=== PATIENT | male | born 1935 | race Asian ===

== ENCOUNTER 2018-07-26 06:02 | Inpatient (IN) | payer OTHER ==
[~2018-07-26] VITALS: Ht 170.2 cm; Wt 78.9 kg
[2018-07-26] VITALS (7 sets, daily range): BP systolic 119–158; BP diastolic 74–93
[2018-07-26 07:04] LABS: BASOPHILS % (AUTO) 0.7 % (0.0-2.0); EOSINOPHILS # (AUTO) 0.2 K/uL (0-0.4); EOSINOPHILS % (AUTO) 4.4 % (0.0-4.0); HEMATOCRIT 46.3 % (36-52); HEMOGLOBIN 15.2 g/dL (12.0-18.0); LYMPHOCYTES # (AUTO) 1.4 K/uL (2.0-11.5); LYMPHOCYTES % (AUTO) 30.1 % (20.5-51.1); MEAN CORPUSCULAR HEMOGLOBIN 31 pg (27-31); MEAN CORPUSCULAR HGB CONC 33 g/dL (33-37); MEAN CORPUSCULAR VOLUME 94.8 fL (80-94); MONOCYTES # (AUTO) 0.5 K/uL (0.8-1.0); MONOCYTES % (AUTO) 10.6 % (1.7-9.3); NEUTROPHILS # (AUTO) 2.5 K/uL (1.8-7.7); NEUTROPHILS % (AUTO) 54.2 % (42.2-75.2); PLATELET COUNT (AUTO) 120 K/uL (140-450); RED BLOOD CELL COUNT(AUTO) 4.88 MIL/uL (4.20-6.10); RED CELL DISTRIBUTION WIDTH 13.1 % (11.6-13.7); WHITE BLOOD COUNT (AUTO) 4.6 K/uL (4.8-10.8)
[2018-07-26 07:10] LABS: ANION GAP 11.9 (8-16); CARBON DIOXIDE 28.3 mmol/L (21-32); CHLORIDE 106 mmol/L (98-107); CREATININE 1.2 mg/dL (0.7-1.3); GLUCOSE 131 mg/dL (74-106); POTASSIUM 4.2 mmol/L (3.5-5.1); SODIUM SERUM 142 mmol/L (136-145); UREA NITROGEN, BLOOD 16 mg/dL (7-18)
[2018-07-26 07:25] LABS: ALBUMIN 3.7 g/dL (3.4-5.0); ASPARTATE AMINOTRANSFERASE 22 U/L (15-37); TOTAL BILIRUBIN 0.8 mg/dL (0.0-1.0)
[2018-07-26 07:26] LABS: APPEARANCE,URINE CLEAR (CLEAR); BILIRUBIN,URINE NEGATIVE (NEGATIVE); BLOOD, URINE NEGATIVE (NEGATIVE); COLOR,URINE YELLOW (YELLOW); LEUKOCYTE ESTERASE ,URINE NEGATIVE (NEGATIVE); NITRITE, URINE NEGATIVE (NEGATIVE); UGLUCOSE NEGATIVE (NEGATIVE)
[2018-07-26] MEDS ORDERED: PIPERACILLIN/TAZOBACTAM 3.375 GM in DEXTROSE 5% 50 ML IV ONE (07:50)
[2018-07-26] MEDS ORDERED: NACL 0.9% 2,500 ML IV ONE (07:50)
[2018-07-26] MEDS ORDERED: PIPERACILLIN/TAZOBACTAM 3.375 GM VIAL IV ONE (08:04)
[2018-07-26] MEDS ORDERED: KETOROLAC 15 MG/ML VIAL IVP PRN (08:05)
[2018-07-26] MEDS ORDERED: ACETAMINOPHEN 325 MG TAB PO PRN (08:05)
[2018-07-26] MEDS ORDERED: DOCUSATE SODIUM 100 MG GELCAP PO PRN (08:05)
[2018-07-26] MEDS ORDERED: ONDANSETRON 4 MG/2 ML VIAL IM/IVP PRN (08:05)
[2018-07-26] MEDS ORDERED: MECLIZINE 25 MG TAB PO PRN (08:05)
[2018-07-26 08:42] LABS: PROTHROMBIN TIME 10.1 secs (10.8-13.4)
[2018-07-26 08:51] LABS: AMYLASE 77 U/L (25-115); CHOL/HDL RATIO 2.8 (1-4.5); HDL CHOLESTEROL 56 mg/dL (40-60); LDL (CALC) 77 mg/dL (60-100); LIPASE 174 U/L (73-393); MAGNESIUM 1.7 mg/dL (1.8-2.4); THYROID STIMULATING HORMONE 1.18 uIU/mL (0.34-3.74); TRIGLYCERIDES 107 mg/dL (30-150)
[2018-07-26 08:52] LABS: BARBITURATE, URINE NEG. ng/ml (NEG <=200); BENZODIAZEPINE, URINE NEG. ng/mL (NEG <=200); CANNABINOID, URINE NEG. ng/mL (NEG <=50); OPIATE, URINE NEG. ng/mL (NEG <=2000); PHENCYCLIDINE SCREEN,URINE NEG. ng/mL (NEG <=25)
[2018-07-26] MEDS ORDERED: TAMS0.4C96 PO (08:57)
[2018-07-26 09:00] LABS: COCAINE, URINE NEG. ng/mL (NEG <=300)
[2018-07-26] MEDS ORDERED: ATOR10TA PO (09:05)
[2018-07-26] MEDS ORDERED: OLME20TA11 PO (09:05)
[2018-07-26] MEDS ORDERED: OLMESARTAN MEDOXOMIL 20 MG PO SCH (09:10)
[2018-07-26] MEDS: NACL 0.9% 1,000 ML IV SCH (09:45)
[2018-07-26] MEDS ORDERED: LACTOBACILLUS RHAMNOSUS GG 1 EACH CAP PO SCH (10:00)
[2018-07-26] MEDS ORDERED: LOSARTAN 50 MG TAB PO SCH (10:00)
[2018-07-26] MEDS: PIPER/TAZO 2.25GM/D5W PREMIX 50 ML IV SCH ×2 (12:56→20:27)
[2018-07-26] MEDS: MAGNESIUM OXIDE 400 MG TAB PO SCH (20:29)
[2018-07-26] MEDS: ATORVASTATIN 20 MG TAB PO SCH (20:29)
[2018-07-26] MEDS: SODIUM PHOS / POTASSIUM PHOS 1 PKT PDR PO SCH (20:30)
[2018-07-26] MEDS: TAMSULOSIN 0.4 MG CAP PO SCH (20:30)
[2018-07-27] VITALS (7 sets, daily range): BP systolic 126–163; BP diastolic 73–90
[2018-07-27] MEDS: NACL 0.9% 1,000 ML IV SCH (00:55)
[2018-07-27] MEDS: PIPER/TAZO 2.25GM/D5W PREMIX 50 ML IV SCH ×3 (04:27→21:19)
[2018-07-27 06:32] LABS: BASOPHILS % (AUTO) 0.8 % (0.0-2.0); EOSINOPHILS # (AUTO) 0.2 K/uL (0-0.4); EOSINOPHILS % (AUTO) 3.8 % (0.0-4.0); HEMATOCRIT 46.2 % (36-52); HEMOGLOBIN 15.5 g/dL (12.0-18.0); LYMPHOCYTES # (AUTO) 1.2 K/uL (2.0-11.5); LYMPHOCYTES % (AUTO) 23.4 % (20.5-51.1); MEAN CORPUSCULAR HEMOGLOBIN 31 pg (27-31); MEAN CORPUSCULAR HGB CONC 34 g/dL (33-37); MEAN CORPUSCULAR VOLUME 93.4 fL (80-94); MONOCYTES # (AUTO) 0.5 K/uL (0.8-1.0); NEUTROPHILS # (AUTO) 3.1 K/uL (1.8-7.7); PLATELET COUNT (AUTO) 123 K/uL (140-450); RED BLOOD CELL COUNT(AUTO) 4.95 MIL/uL (4.20-6.10); RED CELL DISTRIBUTION WIDTH 13.2 % (11.6-13.7)
[2018-07-27] MEDS: DEXT 5% /NACL 0.9% 1,000 ML IV SCH ×3 (07:15→21:17)
[2018-07-27 07:18] LABS: ANION GAP 12.3 (8-16); CARBON DIOXIDE 29.3 mmol/L (21-32); CHLORIDE 107 mmol/L (98-107); CREATININE 1.2 mg/dL (0.7-1.3); GLUCOSE 110 mg/dL (74-106); POTASSIUM 4.6 mmol/L (3.5-5.1); SODIUM SERUM 144 mmol/L (136-145); UREA NITROGEN, BLOOD 17 mg/dL (7-18)
[2018-07-27] MEDS: SODIUM PHOS / POTASSIUM PHOS 1 PKT PDR PO SCH ×2 (08:54→21:20)
[2018-07-27] MEDS: MAGNESIUM OXIDE 400 MG TAB PO SCH ×2 (08:55→21:21)
[2018-07-27] MEDS: LACTOBACILLUS RHAMNOSUS GG 1 EACH CAP PO SCH (08:55)
[2018-07-27] MEDS: LOSARTAN 50 MG TAB PO SCH ×2 (08:55→11:56)
[2018-07-27 09:20] LABS: MAGNESIUM 1.8 mg/dL (1.8-2.4)
[2018-07-27] MEDS: TAMSULOSIN 0.4 MG CAP PO SCH (21:20)
[2018-07-27] MEDS: ATORVASTATIN 20 MG TAB PO SCH (21:20)
[2018-07-28] VITALS: BP 154/75
[2018-07-28 04:00] VITALS: BP 139/88
[2018-07-28] MEDS: PIPER/TAZO 2.25GM/D5W PREMIX 50 ML IV SCH (05:55)
[2018-07-28 07:22] LABS: BASOPHILS # (AUTO) 0.1 K/uL (0.00-0.22); EOSINOPHILS # (AUTO) 0.2 K/uL (0-0.4); EOSINOPHILS % (AUTO) 3.4 % (0.0-4.0); HEMATOCRIT 44.3 % (36-52); HEMOGLOBIN 14.6 g/dL (12.0-18.0); LYMPHOCYTES # (AUTO) 1.1 K/uL (2.0-11.5); LYMPHOCYTES % (AUTO) 15.9 % (20.5-51.1); MEAN CORPUSCULAR HEMOGLOBIN 31 pg (27-31); MEAN CORPUSCULAR HGB CONC 33 g/dL (33-37); MEAN CORPUSCULAR VOLUME 94.6 fL (80-94); MONOCYTES # (AUTO) 0.7 K/uL (0.8-1.0); MONOCYTES % (AUTO) 10.5 % (1.7-9.3); NEUTROPHILS # (AUTO) 4.7 K/uL (1.8-7.7); NEUTROPHILS % (AUTO) 69.2 % (42.2-75.2); PLATELET COUNT (AUTO) 123 K/uL (140-450); RED BLOOD CELL COUNT(AUTO) 4.68 MIL/uL (4.20-6.10); RED CELL DISTRIBUTION WIDTH 13.5 % (11.6-13.7); WHITE BLOOD COUNT (AUTO) 6.8 K/uL (4.8-10.8)
[2018-07-28 08:00] VITALS: BP 149/95
[2018-07-28 08:02] LABS: CARBON DIOXIDE 30.2 mmol/L (21-32); CHLORIDE 107 mmol/L (98-107); CREATININE 1.2 mg/dL (0.7-1.3); GLUCOSE 126 mg/dL (74-106); POTASSIUM 4.2 mmol/L (3.5-5.1); SODIUM SERUM 142 mmol/L (136-145); UREA NITROGEN, BLOOD 16 mg/dL (7-18)
[2018-07-28] MEDS: DEXT 5% /NACL 0.9% 1,000 ML IV SCH (08:15)
[2018-07-28] MEDS ORDERED: PHEN51GE TP (08:46)
[2018-07-28] MEDS ORDERED: MECL-272 PO (08:46)
[2018-07-28] MEDS: MAGNESIUM OXIDE 400 MG TAB PO SCH (09:22)
[2018-07-28] MEDS: SODIUM PHOS / POTASSIUM PHOS 1 PKT PDR PO SCH (09:23)
[2018-07-28] MEDS: LOSARTAN 50 MG TAB PO SCH (09:23)
[2018-07-28] MEDS: LACTOBACILLUS RHAMNOSUS GG 1 EACH CAP PO SCH (09:24)
[2018-07-28 12:00] VITALS: BP 155/81
[2018-07-28 12:56] VITALS: BP 155/81
== END 2018-07-28 13:35 | disposition home or self-care (01) | DRG 74 ==
LOC: MED 06:02 → MTU 08:26
PROVIDERS: ADMIT General Practice; ATTEND General Practice
DX: G90.9 Disorder of the autonomic nervous system, unspecified (principal); E87.2 Acidosis; H81.10 Benign paroxysmal vertigo, unspecified ear; D72.819 Decreased white blood cell count, unspecified; D69.6 Thrombocytopenia, unspecified; E83.39 Other disorders of phosphorus metabolism; E83.42 Hypomagnesemia; E78.00 Pure hypercholesterolemia, unspecified; N40.0 Benign prostatic hyperplasia without lower urinary tract symptoms; E78.5 Hyperlipidemia, unspecified; E86.0 Dehydration; M47.814 Spondylosis without myelopathy or radiculopathy, thoracic region; F03.90 Unspecified dementia, unspecified severity, without behavioral disturbance, psychotic disturbance, mood disturbance, and anxiety; I11.9 Hypertensive heart disease without heart failure; E23.7 Disorder of pituitary gland, unspecified
CPT/HCPCS: 36415; 70450; 71045; 80048; 80053; 80305; 81003; 82140; 82150; 83036; 83605; 83690; 83735; 83880; 84100; 84146; 84443; 84484; 85025; 85610; 85730; 87040; 87081; 87086; 93005; 93880; 96365; 97110; 97116; 97530; 99285; G0482; J2543; J7030; J7042; J7060; Q0092

== ENCOUNTER 2019-06-14 03:49 | Inpatient (IN) | payer OTHER ==
[~2019-06-14] VITALS: Ht 167.6 cm; Wt 81.9 kg
[~2019-06-14 03:49] MED LIST: ATOR10TA PO; MECL-272 PO; OLME20TA11 PO; PHEN51GE TP; TAMS0.4C96 PO
[2019-06-14 03:57] VITALS: BP 147/74
[2019-06-14] MEDS ORDERED: SODIUM CHLORIDE FLUSH 10 ML SYR IVF STA (04:05)
--- NOTE | 2019-06-14 04:06 | NUR ---
PT AMBULATED TO BED 11.
--- NOTE | 2019-06-14 04:13 | NUR ---
Dr. Cardenas examining patient.
[2019-06-14] MEDS ORDERED: NACL 0.9% 1,000 ML IV ONE (04:25)
[2019-06-14] MEDS ORDERED: NITROGLYCERIN 0.4 MG TAB SL ONE (04:25)
[2019-06-14] MEDS ORDERED: ASPIRIN 81 MG TAB.CHEW PO ONE (04:25)
--- NOTE | 2019-06-14 04:29 | NUR ---
PT C/O CHEST PAIN UPON INSPIRATION THAT RADIATES TO ABD X3 HRS. PT NOT IN DISTRESS AT THIS TIME. DENIES N/V/D. PT STATES PAIN IS 6/10 SHARP PAIN PROVOKED BY INSPIRATION. RR EVEN AND UNLABORED. ABD SOFT, ROUND, NONTENDER. VSS AT THIS TIME. FAMILY AT BEDSIDE. MEDHX: HDL ALLERGIES: NKA
[2019-06-14 04:39] LABS: HEMATOCRIT 45.2 % (36-52); HEMOGLOBIN 14.8 g/dL (12.0-18.0); MEAN CORPUSCULAR HEMOGLOBIN 31 pg (27-31); MEAN CORPUSCULAR HGB CONC 33 g/dL (33-37); MEAN CORPUSCULAR VOLUME 94.8 fL (80-94); PLATELET COUNT (AUTO) 132 K/uL (140-450); RED BLOOD CELL COUNT(AUTO) 4.77 MIL/uL (4.20-6.10); RED CELL DISTRIBUTION WIDTH 13.8 % (11.6-13.7); WHITE BLOOD COUNT (AUTO) 8.9 K/uL (4.8-10.8)
[2019-06-14 04:51] LABS: ANION GAP 11.6 (8-16); CARBON DIOXIDE 25.6 mmol/L (21-32); CHLORIDE 105 mmol/L (98-107); CREATININE 1.1 mg/dL (0.7-1.3); GLUCOSE 142 mg/dL (74-106); POTASSIUM 4.2 mmol/L (3.5-5.1); SODIUM SERUM 138 mmol/L (136-145); UREA NITROGEN, BLOOD 16 mg/dL (7-18)
[2019-06-14 04:56] LABS: ALBUMIN 3.6 g/dL (3.4-5.0); ASPARTATE AMINOTRANSFERASE 21 U/L (15-37); TOTAL BILIRUBIN 0.8 mg/dL (0.0-1.0)
[2019-06-14 04:59] LABS: PROTHROMBIN TIME 9.5 secs (10.8-13.4)
--- NOTE | 2019-06-14 05:01 | NUR ---
CALLED CT TO LET THEM KNOW PT IS READY TO GO TO CT SCAN.
[2019-06-14 05:06] LABS: EOSINOPHILS % (MANUAL) 1 % (0-4); LYMPHOCYTES % (MANUAL) 10 % (20-46); MONOCYTES % (MANUAL) 1 % (5-12)
--- NOTE | 2019-06-14 05:10 | NUR ---
PT TAKEN TO CT
--- NOTE | 2019-06-14 05:27 | NUR ---
PT RETURN FROM CT
[2019-06-14] MEDS ORDERED: HYDROcodone/APAP 7.5/325 MG 1 TAB PO PRN (06:30)
[2019-06-14] MEDS: NACL 0.9% 1,000 ML IV SCH ×2 (06:30→23:10)
[2019-06-14] MEDS ORDERED: ONDANSETRON 4 MG/2 ML VIAL IM/IVP PRN (06:30)
[2019-06-14] MEDS ORDERED: DOCUSATE SODIUM 100 MG GELCAP PO PRN (06:30)
--- NOTE | 2019-06-14 06:38 | NUR ---
PT RESTING IN BED WITH EYES CLOSED. NO FURTHER COMPLAINTS. VSS, WILL CONTINUE TO MONITOR.
--- NOTE | 2019-06-14 06:55 | NUR ---
RECEIVED PATIENT FROM ER NURSE. PATIENT IS ON ROOM AIR, A&OX4. IV TO RIGHT AC 20G. SKIN IS INTACT. PATIENT DENIES ANY CHEST PAIN AT THIS TIME. ADMINISTERED IVF NS @60ML/HR PER ORDER. WILL CONTINUE TO MONITOR
--- NOTE | 2019-06-14 07:03 | NUR ---
Patient will be admitted to care of DR WELDON. Admited to TELE. Will go to room 127B. Belongings list completed. Report to RONAL ISRAEL.
[2019-06-14 07:26] LABS: FREE T4 (FREE THYROXINE) 1.17 ng/dL (0.76-1.46); MAGNESIUM 1.7 mg/dL (1.8-2.4); PHOSPHORUS 2.1 mg/dL (2.5-4.9); THYROID STIMULATING HORMONE 1.4 uIU/mL (0.34-3.74)
--- NOTE | 2019-06-14 07:30 | NUR ---
ADMIT TELE STRIP SINUS RHYTHM, HR OF 93
[2019-06-14] MEDS ORDERED: ASPIRIN 81 MG TAB.CHEW PO SCH (09:00)
--- NOTE | 2019-06-14 09:15 | NUR ---
ADMINISTERED MORNING MEDICATION TO PATIENT. NO COMPLAINTS AT THIS TIME. PT DENIES PAIN
[2019-06-14] MEDS: LACTOBACILLUS RHAMNOSUS GG 1 EACH CAP PO SCH (09:40)
[2019-06-14] MEDS ORDERED: SODIUM PHOS / POTASSIUM PHOS 1 PKT PDR PO SCH (10:30)
[2019-06-14] MEDS ORDERED: MAG SULF 2000 MG/WATER PREMIX 50 ML IV SCH (11:00)
[2019-06-14 12:00] VITALS: BP 136/71
--- NOTE | 2019-06-14 12:15 | NUR ---
HUNG UP ZOSYN IVPB. PATIENT IS RESTING QUIETLY IN BED. NO COMPLAINTS AT THIS TIME.
[2019-06-14] MEDS: PIPERACILLIN/TAZOBACTAM 3.375 GM in DEXTROSE 5% 50 ML IV SCH ×2 (13:32→20:58)
[2019-06-14] MEDS: ACETAMINOPHEN 325 MG TAB PO PRN (13:36)
--- NOTE | 2019-06-14 13:37 | NUR ---
ADMINISTERED TYLENOL 650MG FOR A FEVER OF 101.0.
[2019-06-14 16:00] VITALS: BP 101/56
[2019-06-14 17:23] LABS: BILIRUBIN,URINE NEGATIVE (NEGATIVE); BLOOD, URINE NEGATIVE (NEGATIVE); LEUKOCYTE ESTERASE ,URINE NEGATIVE (NEGATIVE); NITRITE, URINE NEGATIVE (NEGATIVE); PH,URINE 7.5 (5.0-9.0); UGLUCOSE NEGATIVE (NEGATIVE)
[2019-06-14 17:25] LABS: APPEARANCE,URINE CLEAR (CLEAR); COLOR,URINE YELLOW (YELLOW)
--- NOTE | 2019-06-14 18:29 | NUR ---
PATIENT IS SITTING UP AT BEDSIDE. NO COMPLAINTS OR PAIN AT THIS TIME. WILL ENDORSE TO PROPERTY SPECIALIST NURSE FOR CONTINUITY OF CARE.
[2019-06-14 20:00] VITALS: BP 147/62
--- NOTE | 2019-06-14 20:00 | NUR ---
ASSUMED CARE. RECEIVED ALERT,ORIENTED,AMBULATORY. AFEBRILE, NOT IN ACUTE DISTRESS. DENIES ANY PAIN OR DISCOMFORT AT THIS TIME. IV LINE OCCLUDED. WILL ESTABLISH A NEW IV LINE. SAO2=95% ON ROOM AIR. SINUS RHYTHM AT 70'S ON THE MONITOR. VS STABLE, WILL CONTINUE TO MONITOR. NEEDS ATTENDED.
--- NOTE | 2019-06-14 20:30 | NUR ---
GAUGE 18 IV LINE ESTABLISHED TO THE RIGHT WRIST. IV FLUID NS RESTARTED AT 60 ML/HR.
[2019-06-14] MEDS: TAMSULOSIN 0.4 MG CAP PO SCH (20:58)
[2019-06-14] MEDS: ATORVASTATIN 20 MG TAB PO SCH (20:59)
--- NOTE | 2019-06-14 21:00 | NUR ---
DUE MEDICATIONS GIVEN.
[2019-06-14] MEDS ORDERED: LATA2.5S8 OP ×2 (22:22→22:34)
[2019-06-14] MEDS ORDERED: NORT10CA5 PO ×2 (22:22→22:34)
[2019-06-14] MEDS ORDERED: ASPI-1173 PO ×2 (22:22→22:34)
[2019-06-14] MEDS ORDERED: BRIN10SU OP ×2 (22:22→22:34)
[2019-06-15] VITALS: BP 135/70
--- NOTE | 2019-06-15 | NUR ---
NPO FOR HIDA SCAN STARTED.
--- NOTE | 2019-06-15 | NUR ---
ASLEEP, NOT IN ANY KIND OF DISTRESS. NO PAIN OR DISCOMFORT NOTED. SIDE RAILS UP,CALL LIGHT WITHIN REACH. KEPT WARM AND COMFORTABLE. WILL CONTINUE TO MONITOR. VS REMAIN STABLE.
[2019-06-15 04:00] VITALS: BP 155/70
--- NOTE | 2019-06-15 04:00 | NUR ---
ASLEEP, NO PAIN OR DISCOMFORT NOTED. NO SIGNIFICANT CHANGE IN CONDITION. VS REMAIN STABLE.
[2019-06-15] MEDS: PIPERACILLIN/TAZOBACTAM 3.375 GM in DEXTROSE 5% 50 ML IV SCH ×3 (05:00→20:40)
--- NOTE | 2019-06-15 06:00 | NUR ---
AWAKE, NO PAIN OR DISCOMFORT NOTED. NPO FOR HIDA SCAN ONGOING. SHIFT UNEVENTFUL.
[2019-06-15 06:43] LABS: BASOPHILS % (AUTO) 0.3 % (0.0-2.0); EOSINOPHILS # (AUTO) 0.1 K/uL (0-0.4); EOSINOPHILS % (AUTO) 0.8 % (0.0-4.0); HEMATOCRIT 45.1 % (36-52); HEMOGLOBIN 14.8 g/dL (12.0-18.0); LYMPHOCYTES # (AUTO) 1.2 K/uL (2.0-11.5); LYMPHOCYTES % (AUTO) 14.6 % (20.5-51.1); MEAN CORPUSCULAR HEMOGLOBIN 31 pg (27-31); MEAN CORPUSCULAR HGB CONC 33 g/dL (33-37); MEAN CORPUSCULAR VOLUME 95.3 fL (80-94); MONOCYTES # (AUTO) 1.2 K/uL (0.8-1.0); NEUTROPHILS # (AUTO) 5.9 K/uL (1.8-7.7); NEUTROPHILS % (AUTO) 70.3 % (42.2-75.2); PLATELET COUNT (AUTO) 117 K/uL (140-450); RED BLOOD CELL COUNT(AUTO) 4.74 MIL/uL (4.20-6.10); RED CELL DISTRIBUTION WIDTH 13.2 % (11.6-13.7); WHITE BLOOD COUNT (AUTO) 8.4 K/uL (4.8-10.8)
[2019-06-15 06:45] LABS: CARBON DIOXIDE 26.9 mmol/L (21-32); CHLORIDE 105 mmol/L (98-107); CREATININE 1.3 mg/dL (0.7-1.3); GLUCOSE 122 mg/dL (74-106); POTASSIUM 3.9 mmol/L (3.5-5.1); SODIUM SERUM 139 mmol/L (136-145); UREA NITROGEN, BLOOD 16 mg/dL (7-18)
[2019-06-15 06:49] LABS: MAGNESIUM 1.8 mg/dL (1.8-2.4); PHOSPHORUS 2.6 mg/dL (2.5-4.9)
--- NOTE | 2019-06-15 07:18 | NUR ---
ENDORSED CARE TO SANJUANA PEÑA.
[2019-06-15 08:00] VITALS: BP 148/86
[2019-06-15] MEDS: LACTOBACILLUS RHAMNOSUS GG 1 EACH CAP PO SCH (08:24)
[2019-06-15] MEDS ORDERED: LATANOPROST 0.005% OP 2.5 ML BTL OP SCH ×2 (09:00→21:00)
--- NOTE | 2019-06-15 11:02 | NUR ---
RECEIVED REPORT FROM NIGHT RN. PT RESTING IN BED. AAOX4. NO S/S OF ACUTE DISTRESS. PT DENIES PAIN. IV SITE PATENT AND INTACT. CALL LIGHT WITHIN REACH. SAFETY MEASURES ENSURED. WILL CONTINUE TO MONITOR.
[2019-06-15 11:56] VITALS: BP 153/85
--- NOTE | 2019-06-15 11:58 | NUR ---
PT RESTING IN BED. NO S/S OF ACUTE DISTRESS. PT DENIES PAIN. IV SITE PATENT AND INTACT. CALL LIGHT WITHIN REACH. SAFETY MEASURES ENSURED. WILL CONTINUE TO MONITOR.
[2019-06-15] MEDS: NACL 0.9% 1,000 ML IV SCH (14:48)
[2019-06-15 15:54] VITALS: BP 149/65
--- NOTE | 2019-06-15 15:54 | NUR ---
HIDA SCAN BEING PERFORMED NOW.
--- NOTE | 2019-06-15 19:30 | NUR ---
RECEIVED BEDSIDE REPORT FROM DAY RN. PT IS AAOX4 ON ROOM AIR. UNDERSTANDS SOME UPPER SORBIAN SPEAKS MOSTLY ENGLISH. SKIN IS INTACT. PT IS AMBULATORY ON STANDARD PRECAUTIONS. IV ON RAC 20G IVD NS @60M/H. PT HAD HIDA SCAN TODAY ORDERS FOR NPO AFTER MIDNIGHT. PT AWARE. SAFETY MEASURES ARE IN PLACE. CALL LIGHT IS WITHIN REACH. WILL CONTINUE TO MONITOR.
[2019-06-15 20:00] VITALS: BP 136/79
[2019-06-15] MEDS: ATORVASTATIN 20 MG TAB PO SCH (20:39)
[2019-06-15] MEDS: NORTRIPTYLINE 10 MG CAP PO SCH (20:39)
[2019-06-15] MEDS: TAMSULOSIN 0.4 MG CAP PO SCH (20:39)
--- NOTE | 2019-06-15 20:40 | NUR ---
VITAL SIGNS ARE WITHIN NORMAL LIMITS. ALHAJI MEDICATIONS GIVEN PATIENT TOLERATED WELL. ALL NEEDS MET AT THIS TIME. CALL LIGHT IS WITHIN REACH. WILL CONTINUE TO MONITOR.
[2019-06-15] MEDS: LATANOPROST 0.005% OP 2.5 ML BTL OP SCH (20:41)
--- NOTE | 2019-06-15 22:00 | NUR ---
PATIENT IS SLEEPING COMFORTABLY IN BED. CHEST RISE AND FALL. CALL LIGHT IS WITHIN REACH. WILL CONTINUE TO MONITOR.
--- NOTE | 2019-06-15 23:55 | NUR ---
VITAL SIGNS ARE WITHIN NORMAL LIMITS. ALL NEEDS MET AT THIS TIME. CALL LIGHT IS WITHIN REACH. WILL CONTINUE TO MONITOR.
[2019-06-16] VITALS: BP 143/78
--- NOTE | 2019-06-16 02:00 | NUR ---
PATIENT IS SLEEPING COMFORTABLY IN BED. CHEST RISE AND FALL. CALL LIGHT IS WITHIN REACH. WILL CONTINUE TO MONITOR.
[2019-06-16 04:00] VITALS: BP 144/75
[2019-06-16] MEDS: PIPERACILLIN/TAZOBACTAM 3.375 GM in DEXTROSE 5% 50 ML IV SCH ×3 (04:16→20:06)
--- NOTE | 2019-06-16 04:16 | NUR ---
VITAL SIGNS ARE WITHIN NORMAL LIMITS. ZOSYN NOW INFUSING PER ORDERS. ALL NEEDS MET AT THIS TIME. CALL LIGHT IS WITHIN REACH. WILL CONTINUE TO MONITOR.
[2019-06-16 07:02] LABS: EOSINOPHILS # (AUTO) 0.2 K/uL (0-0.4); HEMOGLOBIN 15.6 g/dL (12.0-18.0); LYMPHOCYTES # (AUTO) 1.3 K/uL (2.0-11.5); MEAN CORPUSCULAR HEMOGLOBIN 31 pg (27-31); PLATELET COUNT (AUTO) 128 K/uL (140-450); RED CELL DISTRIBUTION WIDTH 13.4 % (11.6-13.7)
[2019-06-16 07:09] LABS: BASOPHILS % (AUTO) 0.3 % (0.0-2.0); EOSINOPHILS % (AUTO) 2.4 % (0.0-4.0); HEMATOCRIT 47.8 % (36-52); LYMPHOCYTES % (AUTO) 17.9 % (20.5-51.1); MEAN CORPUSCULAR HGB CONC 33 g/dL (33-37); MEAN CORPUSCULAR VOLUME 95.5 fL (80-94); NEUTROPHILS % (AUTO) 66.4 % (42.2-75.2); WHITE BLOOD COUNT (AUTO) 7.5 K/uL (4.8-10.8)
--- NOTE | 2019-06-16 07:26 | NUR ---
GAVE BEDSIDE REPORT TO DAY RN. PT ENDORSED IN STABLE CONDITION.
--- NOTE | 2019-06-16 07:30 | NUR ---
RECEIVED BEDSIDE REPORT FROM USED CAR RENOVATOR NURSE, PT IS AWAKE AND ALERT, WALKING FROM THE BATHROOM TO HIS BED, STEADY GAIT. NO S/S OF DISTRESS, NO C/O PAIN OR SOB AT THIS TIME. PT IS ON ROOM AIR. IV SITE IS INFUSING NS 60 ML/HR VIA THE R HAND 22 G. SKIN IS INTACT. CALL LIGHT IS WITHIN REACH. PT IS NPO FOR POSSIBLE LAP ARABELLA.
[2019-06-16 07:55] LABS: ANION GAP 14.7 (8-16); CARBON DIOXIDE 26.3 mmol/L (21-32); CHLORIDE 104 mmol/L (98-107); CREATININE 1.2 mg/dL (0.7-1.3); GLUCOSE 106 mg/dL (74-106); SODIUM SERUM 141 mmol/L (136-145); UREA NITROGEN, BLOOD 14 mg/dL (7-18)
[2019-06-16 08:00] VITALS: BP 153/75
[2019-06-16] MEDS: NACL 0.9% 1,000 ML IV SCH ×2 (09:19→20:07)
[2019-06-16] MEDS: LACTOBACILLUS RHAMNOSUS GG 1 EACH CAP PO SCH (09:19)
--- NOTE | 2019-06-16 09:23 | NUR ---
AM MEDS ADMINISTERED, PT TOLERATED WELL
--- NOTE | 2019-06-16 11:37 | NUR ---
PT HAVING ECHOCARDIOGRAPHY AT THIS TIME
[2019-06-16 12:00] VITALS: BP 169/87
--- NOTE | 2019-06-16 13:10 | NUR ---
ZOSYN IV INFUSING ORDERED, PT IS RESTING COMFORTABLY IN BED, NO C/O PAIN OR SOB.
--- NOTE | 2019-06-16 15:34 | NUR ---
GOT A CALL FROM JACEY (HOUSE SUP), SHE SAYS DR STILL MIGHT DO CHOLECYSTECTOMY TONIGHT BUT NEEDS CARDIAC CLEARANCE FROM DR FITZPATRICK. DR FITZPATRICK IS ALREADY ON THE CASE, JUST WAITING FOR HIM TO COME SEE THE PATIENT. DR DUTTON IS AWARE.
[2019-06-16 16:00] VITALS: BP 181/101
--- NOTE | 2019-06-16 16:30 | NUR ---
PT SEEN BY DR FITZPATRICK
--- NOTE | 2019-06-16 17:15 | NUR ---
PT'S BP IS 181/[address] DUTTON IS INFORMED AND WILL PLACE MED ORDERS.
[2019-06-16] MEDS ORDERED: hydrALAZINE 20 MG/ML VIAL IVP PRN (17:35)
--- NOTE | 2019-06-16 18:46 | NUR ---
PT'S BP IS 174/91 AT THIS TIME.
--- NOTE | 2019-06-16 19:30 | NUR ---
PT ENDORSED TO ENVIRONMENTAL CONSULTANT NURSE IN STABLE CONDITION.
--- NOTE | 2019-06-16 19:31 | NUR ---
RECEIVED BEDSIDE REPORT FROM DAY RN. PT IS AAOX4 ON ROOM AIR. UNDERSTANDS SOME URUGUAYAN SPEAKS MOSTLY DANISH. SKIN IS INTACT. PT IS AMBULATORY ON STANDARD PRECAUTIONS. IV ON RAC 20G IVF NS @90M/H. PT HAD HIDA SCAN YESTERDAY AND WAS CLEARED TODAY BY MARKETING PROGRAM COORDINATOR FOR SURGERY. PT BEEN NPO TODAY NO ORDER FOR CONSENT WILL F/U. SAFETY MEASURES ARE IN PLACE. CALL LIGHT IS WITHIN REACH. WILL CONTINUE TO MONITOR.
[2019-06-16 20:00] VITALS: BP_SYST 136; BP_SYST 144; BP_DIAS 79; BP_DIAS 88
[2019-06-16] MEDS: NORTRIPTYLINE 10 MG CAP PO SCH (20:07)
[2019-06-16] MEDS: TAMSULOSIN 0.4 MG CAP PO SCH (20:07)
[2019-06-16] MEDS: LATANOPROST 0.005% OP 2.5 ML BTL OP SCH (20:07)
[2019-06-16] MEDS: ATORVASTATIN 20 MG TAB PO SCH (20:07)
--- NOTE | 2019-06-16 20:07 | NUR ---
VITAL SIGNS ARE WITHIN NORMAL LIMITS. HELD HEPARIN FOR POSSIBLE SURGERY. ALL OTHER ALHAJI MEDICATION GIVEN. PT TOLERATED WELL. CALL LIGHT IS WITHIN REACH. WILL CONTINUE TO MONITOR Addendum: 06/16/19 at 2211 by Mandy Armando RN PT'S B/P: 144/88 HR 75
--- NOTE | 2019-06-16 22:09 | NUR ---
PATIENT LAYING COMFORTABLY IN BED WITH EYES CLOSED. ALL NEEDS MET AT THIS TIME. CALL LIGHT IS WITHIN REACH. WILL CONTINUE TO MONITOR.
--- NOTE | 2019-06-16 23:00 | NUR ---
SURGEON DR STILL IN TO SEE PATIENT AND EXPLAINED SURGERY. PATIENT WAS UPSET WHY HES BEEN IN HOSPITAL THIS LONG. C/C CHEST PAIN. EXPLAINED HE HAD TO BE CLEARED BY SEEING EYE DOG TRAINER BEFORE HE CAN DO SURGERY. PT RECENTLY CLEARED LATE TODAY. PT AGREED TO SURGERY POSSIBLY TOMORROW AND CONSENT WAS SIGNED. BRANCH MECHANIC NAME AGUSTÍN ID#[id number]
[2019-06-17] VITALS (7 sets, daily range): BP systolic 135–170; BP diastolic 75–100
[2019-06-17] MEDS ORDERED: LISINOPRIL 10 MG TAB PO SCH
--- NOTE | 2019-06-17 00:08 | NUR ---
B/P HIGH 170/[address] ROJAS ORDER FOR LISINOPRIL ONCE. MEDICATION GIVEN PER ORDERS. WILL CONTINUE TO MONITOR.
--- NOTE | 2019-06-17 01:10 | NUR ---
RECHECKED B/P 135/78 HR 87. PT DENIES ANY PAIN. ALL NEEDS MET SAFETY MEASURES ARE IN PLACE. CALL LIGHT IS WITHIN REACH.WILL CONTINUE TO MONITOR.
--- NOTE | 2019-06-17 04:00 | NUR ---
VITAL SIGNS ARE WITHIN NORMAL LIMITS. ALL NEEDS MET AT THIS TIME. CALL LIGHT IS WITHIN REACH.
[2019-06-17] MEDS: PIPERACILLIN/TAZOBACTAM 3.375 GM in DEXTROSE 5% 50 ML IV SCH ×3 (04:18→20:29)
[2019-06-17] MEDS: NACL 0.9% 1,000 ML IV SCH ×2 (06:51→17:08)
--- NOTE | 2019-06-17 06:52 | NUR ---
PATIENT IS UP WASHING FACE AND TEETH DENIES ANY PAIN. NO DISTRESS NOTED. PT IS IN STABLE CONDITION. CALL LIGHT IS WITHIN REACH. WILL ENDORSE PT TO DAY RN.
--- NOTE | 2019-06-17 07:25 | NUR ---
RECEIVED REPORT FROM INSURANCE SERVICE REPRESENTATIVE NURSE. PATIENT IS AMBULATING IN IN ROOM. PATIENT IS A&O X4, ON ROOM AIR. IV TO RIGHT HAND 22G WITH NS INFUSING AT 90ML/HR. ON NPO STATUS CURRENTLY FOR POSSIBLE SX,. WILL CONTINUE WITH PLAN OF CARE.
[2019-06-17] MEDS: LACTOBACILLUS RHAMNOSUS GG 1 EACH CAP PO SCH (09:00)
--- NOTE | 2019-06-17 09:30 | NUR ---
ADMINISTERED MORNING CULTURELLE. WITHHELD MORNING HEPARIN D/T PT GOING TO SURGERY. NOTIFIED OF SURGERY AT [address] STILL, PATIENTS PRE OP CHECKLIST HAS BEEN COMPLETED AND CONSENT FORM SIGNED.
[2019-06-17] MEDS: BUPIVACAINE-MPF/EPI 0.5% 30 ML VIAL INJ ONE ×2 (10:05→12:21)
--- NOTE | 2019-06-17 10:21 | NUR ---
PATIENT IS OFF THE UNIT FOR LAP CHOLY.
[2019-06-17] MEDS ORDERED: HYDROmorphone PFS 2 MG/ML SYR ONE (10:33)
[2019-06-17] MEDS ORDERED: fentaNYL 0.05 MG/ML VIAL ONE (10:33)
[2019-06-17] MEDS ORDERED: DESFLURANE 240 ML BTL INH ONE (10:54)
[2019-06-17] MEDS ORDERED: KETOROLAC 30 MG/ML VIAL ONE (10:54)
[2019-06-17] MEDS ORDERED: GLYCOPYRROLATE 0.2 MG/ML VIAL ONE (10:54)
[2019-06-17] MEDS ORDERED: DEXAMETHASONE 4 MG/ML VIAL ONE (10:54)
[2019-06-17] MEDS ORDERED: ONDANSETRON 4 MG/2 ML VIAL ONE (10:54)
[2019-06-17] MEDS ORDERED: ROCURONIUM 50 MG/5 ML VIAL IV ONE (10:54)
[2019-06-17] MEDS ORDERED: NEOSTIGMINE 1:1000 10 MG/10 ML VIAL ONE (10:54)
[2019-06-17] MEDS ORDERED: PROPOFOL 200 MG/20 ML VIAL IV ONE (10:54)
[2019-06-17] MEDS ORDERED: ONDANSETRON 4 MG/2 ML VIAL IVP PRN (11:05)
[2019-06-17] MEDS ORDERED: HYDROmorphone 1 MG/ML AMP IVP PRN ×2 (11:05→12:15)
[2019-06-17] MEDS ORDERED: MORPHINE SULFATE 4 MG/ML SYR IV PRN (12:15)
[2019-06-17] MEDS ORDERED: HYDROcodone/APAP 5/325 MG 1 TAB TAB PO PRN (12:15)
[2019-06-17] MEDS ORDERED: MORPHINE SULFATE 2 MG/ML SYR IVP PRN (12:15)
[2019-06-17] MEDS ORDERED: ONDANSETRON 4 MG/2 ML VIAL IV PRN (12:15)
--- NOTE | 2019-06-17 13:10 | NUR ---
PATIENT IS BACK ON UNIT FROM OR. WILL MONITOR VITAL SIGNS Q4H PER POST OP SHEET.
--- NOTE | 2019-06-17 13:59 | NUR ---
ADMINISTERED ZOSYN IVPB
--- NOTE | 2019-06-17 14:15 | NUR ---
MONITORING VITAL SIGNS Q15MIN POST OP. VITAL SIGNS STABLE POST OP. WILL CONTINUE TO MONITOR
--- NOTE | 2019-06-17 18:17 | NUR ---
PATIENT IS RESTING QUIETLY IN BED. PATIENT WANTED TO REMAIN ON THE NASAL CANNULA. IS AT BEDSIDE. ALL NEEDS HAVE BEEN MET. WILL ENDORSE TO NIGHT RN
--- NOTE | 2019-06-17 19:35 | NUR ---
Received endorsement from AM shift RN; patient A/Ox4, able to make needs known, Scottish speaking, ambulatory. Patient is talking with son and ; introduced self, updated board. no SOB or distress noted, on O2 2LPM via nasal cannula. IV site noted on right hand, 22 gauge, running IVF at 90mL/hr. Skin non-intact; patient s/p lap cholecystectomy, 3 bandages noted with COSMO drain. Bed in the lowest position, call light within reach. Initial assessment done. Will continue to monitor. l
[2019-06-17] MEDS: LATANOPROST 0.005% OP 2.5 ML BTL OP SCH (20:31)
[2019-06-17] MEDS: TAMSULOSIN 0.4 MG CAP PO SCH (20:35)
[2019-06-17] MEDS: ACETAMINOPHEN 325 MG TAB PO PRN (20:36)
[2019-06-17] MEDS: NORTRIPTYLINE 10 MG CAP PO SCH (20:36)
[2019-06-17] MEDS: ATORVASTATIN 20 MG TAB PO SCH (20:37)
--- NOTE | 2019-06-17 20:58 | NUR ---
Vitals take, no distress noted.
--- NOTE | 2019-06-17 21:56 | NUR ---
Due meds given, tolerated well.
--- NOTE | 2019-06-17 23:55 | NUR ---
Vitals taken, no SOB or distress noted.
[2019-06-18] VITALS: BP 142/80
--- NOTE | 2019-06-18 02:13 | NUR ---
Checks made; patient noted with IV site leaking. IV discontinued and new IV site inserted on left hand, 24 gauge. Flushed and patent.
[2019-06-18 04:00] VITALS: BP 137/74
[2019-06-18] MEDS: guaiFENesin 20 MG/ML UDC PO PRN ×2 (04:05→11:10)
[2019-06-18] MEDS: PIPERACILLIN/TAZOBACTAM 3.375 GM in DEXTROSE 5% 50 ML IV SCH ×3 (04:05→21:46)
[2019-06-18] MEDS: NACL 0.9% 1,000 ML IV SCH ×2 (04:08→16:12)
--- NOTE | 2019-06-18 04:30 | NUR ---
Vitals take, no SOB or distress noted.
--- NOTE | 2019-06-18 06:25 | NUR ---
Vitals stable, due meds given. Will endorse to AM shift RN for continuity of care.
[2019-06-18 07:07] LABS: ALBUMIN 2.9 g/dL (3.4-5.0); ANION GAP 13.5 (8-16); ASPARTATE AMINOTRANSFERASE 55 U/L (15-37); CARBON DIOXIDE 24.7 mmol/L (21-32); CHLORIDE 107 mmol/L (98-107); CREATININE 1.2 mg/dL (0.7-1.3); GLUCOSE 116 mg/dL (74-106); POTASSIUM 4.2 mmol/L (3.5-5.1); SODIUM SERUM 141 mmol/L (136-145); TOTAL BILIRUBIN 0.8 mg/dL (0.0-1.0); UREA NITROGEN, BLOOD 13 mg/dL (7-18)
--- NOTE | 2019-06-18 07:26 | NUR ---
RECEIVED REPORT FROM RELIEF MAP MODELER RN. PATIENT IS AWAKE AND IN BED. NEW IV TO LEFT HAND 24G. PATIENT IS ON NASAL CANNULA 2L. WILL CONTINUE WITH PLAN OF CARE FOR THE DAY.
[2019-06-18 07:33] LABS: BASOPHILS % (AUTO) 0.2 % (0.0-2.0); EOSINOPHILS % (AUTO) 0.1 % (0.0-4.0); HEMATOCRIT 41.6 % (36-52); HEMOGLOBIN 13.6 g/dL (12.0-18.0); LYMPHOCYTES # (AUTO) 0.6 K/uL (2.0-11.5); LYMPHOCYTES % (AUTO) 7.3 % (20.5-51.1); MEAN CORPUSCULAR HEMOGLOBIN 31 pg (27-31); MEAN CORPUSCULAR HGB CONC 33 g/dL (33-37); MEAN CORPUSCULAR VOLUME 94.5 fL (80-94); MONOCYTES # (AUTO) 0.7 K/uL (0.8-1.0); MONOCYTES % (AUTO) 7.7 % (1.7-9.3); NEUTROPHILS # (AUTO) 7.5 K/uL (1.8-7.7); NEUTROPHILS % (AUTO) 84.7 % (42.2-75.2); PLATELET COUNT (AUTO) 153 K/uL (140-450); WHITE BLOOD COUNT (AUTO) 8.9 K/uL (4.8-10.8)
[2019-06-18 08:00] VITALS: BP 162/80
--- NOTE | 2019-06-18 08:00 | NUR ---
PT TOOK MORNING CULTURELLE AND REFUSED HEPARIN INJECTION. PT COMPLAINED OF PAIN WHEN COUGHING. INFORMED PATIENT THAT NEXT DOSE OF ROBITUSSIN CANT BE GIVEN FOR ANOTHER HOUR. INFORMED PATIENT THAT AMBULATING IS BENEFICIAL AND OFFERED TO AMBULATE WITH HIM, PATIENT DENIED.
--- NOTE | 2019-06-18 08:00 | NUR ---
LATE ENTRY PT UNABLE TO DO SAYS TO MUCH PAIN
--- NOTE | 2019-06-18 08:01 | NUR ---
PY COMPLAIN OF PAIN UNABLE TO TAKE DEEP BREATH
[2019-06-18] MEDS: LACTOBACILLUS RHAMNOSUS GG 1 EACH CAP PO SCH (08:15)
[2019-06-18] MEDS ORDERED: BENZONATATE 100 MG CAPLF PO PRN (08:15)
[2019-06-18] MEDS ORDERED: BENZONATATE 100 MG CAPLF PO SCH (08:25)
--- NOTE | 2019-06-18 10:00 | NUR ---
ADMINISTERED TESSALON ONE TIME DOSE FOR COUGH.
--- NOTE | 2019-06-18 11:12 | NUR ---
ADMINISTERED ROBITUSSIN PRN FOR COUGHING.
--- NOTE | 2019-06-18 11:23 | NUR ---
MET WITH THE PATIENT AT THE BEDSIDE WITH MEDICAL STUDENT VAL CAO. INFORMED HIM THAT THE DC PLAN FOR HIM IS TO SNF FOR ANTIBIOTIC AND PT. HE IS AGREEABLE TO SNF PLACEMENT BUT REQUESTING IF WE CAN FIND ONE IN [place] (CLOSE TO HOME). INFORMED HIM THAT I CAN FIND ONE BUT COULD NOT GUARANTEE HIM OF BED AVAILABILITY. INFORMED HIM THAT THERE ARE TWO FACILITIES THAT I FOUND, [facility] AND [facility]. HE STATED HE IS OK WITH IT. CONTACTED [facility] AT [phone], ABLE TO SPEAK TO JENNIFER (INTAKE). SHE STATED THAT THEY ARE FULL TODAY BUT TO GO AHEAD AND FAX REFERRAL TO [phone]. CONTACTED [facility] AT [phone], ABLE TO SPEAK TO BRENDAN. SHE PROVIDED ME WITH INTAKE DIRECT LINE AT [phone]. CONTACTED THE PROVIDED NUMBER, ABLE TO SPEAK TO SYL. SHE CONFIRMED THAT THEY HAVE A SNF UNIT AND PROVIDED ME WITH FAX NUMBER [phone] TO SEND REFERRAL. REFERRAL SENT TO BOTH FACILITIES. Addendum: 06/18/19 at 1210 by Jaimie Groves CM PER OLAYINKA OF [facility], THEY RECEIVED THE REFERRAL AND WILL REVIEW THE CASE. SHE ALSO STATED THAT THEY DO NOT HAVE A MALE BED AVAILABLE THIS TIME. Addendum: 06/18/19 at 1213 by Jaimie Groves CM RECEIVED A CALL FROM [facility], NO MALE BEDS AT THIS TIME. Addendum: 06/18/19 at 1215 by Jaimie Groves CM CONTACTED ZACHARY LEVY KIM (INTAKE) IS OUT FOR THE MEETING AND WILL BE BACK IN TWO HOURS. Addendum: 06/18/19 at 1355 by Jaimie Groves CM MET WITH THE PATIENT AGAIN AT THE BEDSIDE TO INFORM HIM THAT THERE ARE NO BEDS AVAILABLE AT THIS TIME ON BOTH FACILITIES FROM [place]. I TOLD HIM THAT I WILL START FAXING OVER CLINICALS TO SOME OTHER FACILITIES. HE VERBALIZED UNDERSTANDING TRANSLATED BY MEDICAL STUDENT VAL. CLINICAL FAXED TO [facility]. Addendum: 06/18/19 at 1356 by Jaimie Groves CM RECEIVED A CALL FROM BROOK PLUMMER) OF [facility], SHE STATED SHE WILL MAKE SOME ROOM CHANGES AND WILL CALL US BACK IN 5 MINS TO CONFIRM IF BED IS AVAILABLE. Addendum: 06/18/19 at 1420 by Jaimie Groves CM MET WITH THE PATIENT AGAIN TRANSLATED BY MEDICAL STUDENT VAL, INFORMED HIM THAT [facility] ACCEPTED HIM. ABLE TO VERBALIZE UNDERSTANDING.
[2019-06-18 12:00] VITALS: BP 140/76
--- NOTE | 2019-06-18 13:32 | NUR ---
CONTACTED PAT LEUNG AT [phone], ABLE TO SPEAK TO TREY REGARDING SNF PLACEMENT ORDER. SHE STATED THERE IS NO CONSTRUCTION TECHNOLOGY INSTRUCTOR ASSIGNED TO THIS PATIENT, FOR SNF PLACEMENT IT HAS TO GO TO MEDICARE AND FOR TRANSPORT MAY USE [facility] AT [phone]. Addendum: 06/18/19 at 1456 by Bobby Cartagena SS IMELDA was contacted by Tara from [facility] [phone]. Tara stated that patient is able to be accepted in Room 1B with accepting physician Dr. Wei Roa. Contacted Syeda [phone] to verify [facility]. Spoke with Gabrielle. Gabrielle stated that [facility] phone number is: [phone]. Contacted [facility] and set up transportation to [address] [address]. Confirmation #[id number]. Spoke with Roselyn who made pickup time "as soon as possible" and is based on availability. IMELDA informed charge nurse.
--- NOTE | 2019-06-18 14:00 | NUR ---
PATIENT HAS DISCHARGE ORDERS FOR SNF FOR PT. WILL FOLLOW UP AND WORK ON PAPERWORK.
[2019-06-18] MEDS ORDERED: CIPR500T4 PO (14:28)
[2019-06-18] MEDS ORDERED: IBUP-2213 PO (14:28)
[2019-06-18] MEDS ORDERED: BENZ100C6 PO (14:28)
--- NOTE | 2019-06-18 14:41 | NUR ---
REMOVED PATIENTS IV LINE, CATHETER INTACT.
--- NOTE | 2019-06-18 15:45 | NUR ---
REMOVED PATIENTS COSMO SUTURES AND COSMO DRAIN, LINE INTACT. MINIMAL BLEEDING, HELD SIGHT FOR 5 MIN AND DRESSED SITE WITH A 4X4. PATIENT TOLERATED WELL.
[2019-06-18 16:00] VITALS: BP 143/82
--- NOTE | 2019-06-18 18:00 | NUR ---
CONTACTED [facility] WITH NO RESPONSE. PRINTED DISCHARGE PAPERWORK. WILL ENDORSE TO VOCATIONAL TECHNICAL EDUCATION TEACHER TO CONTINUE CARE.
[2019-06-18 20:00] VITALS: BP 159/81
--- NOTE | 2019-06-18 20:00 | NUR ---
ASSUMED CARE. RECEIVED ALERT,ORIENTED. AFEBRILE,NOT IN ACUTE DISTRESS. DENIES ANY PAIN OR DISCOMFORT. NO IV LINE AT THIS TIME. PT.IS SUPPOSEDLY FOR DISCHARGE BUT HAD PROBLEM WITH TRANSPORTATION. XZX2=590% ON ROOM AIR. VS ARE OTHERWISE STABLE. WILL CONTINUE TO MONITOR. NEEDS ATTENDED.
[2019-06-18] MEDS: NORTRIPTYLINE 10 MG CAP PO SCH (21:45)
[2019-06-18] MEDS: TAMSULOSIN 0.4 MG CAP PO SCH (21:45)
[2019-06-18] MEDS: ATORVASTATIN 20 MG TAB PO SCH (21:46)
--- NOTE | 2019-06-18 21:46 | NUR ---
GAUGE 20 IV LINE ESTABLISHED TO THE LEFT WRIST. DUE MEDICATIONS GIVEN.
[2019-06-18] MEDS: LATANOPROST 0.005% OP 2.5 ML BTL OP SCH (21:47)
[2019-06-19] VITALS: BP 143/79
--- NOTE | 2019-06-19 | NUR ---
ASLEEP, NOT IN ANY KIND OF DISTRESS. NO PAIN OR DISCOMFORT NOTED. SIDE RAILS UP,CALL LIGHT WITHIN REACH. KEPT WARM AND COMFORTABLE. VS REMAIN STABLE.
[2019-06-19] MEDS: NACL 0.9% 1,000 ML IV SCH (00:35)
[2019-06-19 04:00] VITALS: BP 148/90
--- NOTE | 2019-06-19 04:00 | NUR ---
ASLEEP, NO SIGNIFICANT CHANGE IN CONDITION. PT.REMAINS STABLE AND PAIN FREE.
[2019-06-19] MEDS: PIPERACILLIN/TAZOBACTAM 3.375 GM in DEXTROSE 5% 50 ML IV SCH ×2 (05:14→12:51)
--- NOTE | 2019-06-19 07:15 | NUR ---
ENDORSED CARE TO DENI PEÑA.
--- NOTE | 2019-06-19 07:20 | NUR ---
RECEIVED PT FROM GRAIN MIXER NURSEJOHANNA, PT IS AWAKE AND JUST CAME OUT FROM THE BATHROOM, AMBULATING TO THE BED, IV LINE ON THE LEFT WRIST G. 20 WITH NS INFUSING AT 90ML/HR, PT DENIES PAIN AND WAS TOLD OF THE SAFETY PRECAUTION. PT DENIES PAIN AND NO SIGN OF DISTRESS NOTED. WILL MONITOR PT.
[2019-06-19 08:00] VITALS: BP 155/75
--- NOTE | 2019-06-19 09:23 | NUR ---
CALLED [facility] [phone] SPOKE WITH EMILY EXPLAINED PT WAS SUPPOSE TO GO TO SNF YESTERDAY AND NO TRANSPORT SHOW UP, PER EMILY THE PROBLEM WAS NEVER ASSIGNED TO A PATIENT SERVICE TECHNICIAN PST. A NEW SCHEDULE IS MADE AND THE PATIENT SERVICE TECHNICIAN PST WILL CALL BACK WITH IN 20 TO 30 MINUTES ,PROVIDED THE UNIT NUMBER. CALLED [employer] [place] [phone] SPOKE WITH CLEVE NOTIFIED THE PROBLEM WITH THE TRANSPORTATION ,PER CLEVE ROOM 1B IS STILL AVAILABLE. CM TO FOLLOW
[2019-06-19] MEDS: LACTOBACILLUS RHAMNOSUS GG 1 EACH CAP PO SCH (09:51)
--- NOTE | 2019-06-19 09:51 | NUR ---
PT IS AWAKE AND LYING ON THE BED AND ORAL MEDICATION WAS GIVEN AND TOLERATED IT. WILL MONITOR PT.
[2019-06-19 10:04] LABS: ANION GAP 13.3 (8-16); CARBON DIOXIDE 25.3 mmol/L (21-32); CHLORIDE 107 mmol/L (98-107); CREATININE 1.2 mg/dL (0.7-1.3); GLUCOSE 135 mg/dL (74-106); POTASSIUM 3.6 mmol/L (3.5-5.1); SODIUM SERUM 142 mmol/L (136-145); UREA NITROGEN, BLOOD 10 mg/dL (7-18)
[2019-06-19 10:56] LABS: HEMATOCRIT 41.6 % (36-52); HEMOGLOBIN 13.7 g/dL (12.0-18.0); MEAN CORPUSCULAR HEMOGLOBIN 31 pg (27-31); MEAN CORPUSCULAR HGB CONC 33 g/dL (33-37); MEAN CORPUSCULAR VOLUME 94.8 fL (80-94); PLATELET COUNT (AUTO) 150 K/uL (140-450); RED BLOOD CELL COUNT(AUTO) 4.39 MIL/uL (4.20-6.10); RED CELL DISTRIBUTION WIDTH 13.6 % (11.6-13.7); WHITE BLOOD COUNT (AUTO) 6.2 K/uL (4.8-10.8)
--- NOTE | 2019-06-19 11:42 | NUR ---
CALLED JESUS MORRISON AT [phone] AND GAVE REPORT TO FRANKIE VILLEDA REGARDING THE PT'S DISCHARGED INSTRUCTIONS AND RN WAS TOLD THAT PT WILL CONTINUE ALL HIS HOME MEDICATIONS, WELL THE TESSALON PERLES PRN FOR COUGH AND IBUPROFEN PRN FOR PAIN AND ALSO CIPRO 500MG TWICE DAILY FOR 3 ADDITIONAL DAYS MORE AND FRANKIE VILLEDA VERBALIZED UNDERSTANDING. PT WILL BE PLACE IN 1-B UNDER THE SERVICE OF DR. YOHANNES QUINTERO, RONAL DAVID ACKNOWLEDGED THE REPORT AND VERBALIZED UNDERSTANDING, TRANSPORT JUSTINE'S MARBLE WORKER TIME IS NOT KNOWN YET AT THIS TIME.
[2019-06-19 12:00] VITALS: BP 185/101
[2019-06-19 12:22] LABS: EOSINOPHILS % (MANUAL) 1 % (0-4); LYMPHOCYTES % (MANUAL) 10 % (20-46); MONOCYTES % (MANUAL) 9 % (5-12)
--- NOTE | 2019-06-19 12:51 | NUR ---
PT IS AWAKE AND EATING HIS LUNCH, IVPB MEDICATION WAS GIVEN AND TOLERATED IT. WILL MONITOR PT.
--- NOTE | 2019-06-19 12:51 | NUR ---
CALLED [facility] SPOKE WITH LAURA, STATED IT WAS A MISTAKE THEY ACCEPTED THE CALL, SINCE IT IS OUT OF THE AREA THEY NEED CONFIRMATION FROM THE INSURANCE. CALLED INSURANCE AT [phone] SPOKE WITH WILLIAM STATED SHE CAN NOT GIVE AUTHORIZATION , CLOSED FOR WEAKENED.
[2019-06-19] MEDS ORDERED: METOPROLOL 5 MG/5 ML VIAL IVP SCH (13:02)
--- NOTE | 2019-06-19 13:35 | NUR ---
UNABLE TO REACH FAMILY , ARRANGED TRANSPORT WITH [facility] FOR LERNER OF 220$ DISCUSSED WITH PRESIDENTIAL HELICOPTER CREW CHIEF DIA HANNA . BAGGER AND STOCK HANDLER HELPER TIME 3:30 PM NOTIFIED RADHA VILLEDA
[2019-06-19 13:59] VITALS: BP 185/100
--- NOTE | 2019-06-19 14:44 | NUR ---
RECEIVED A CALL FROM [facility] SPOKE WITH NORA [phone] PER NORA HE ARRANGED TRANSPORT WITH [facility] WITH IN 20-30 MINUTES . CANCELLED [facility].
--- NOTE | 2019-06-19 15:25 | NUR ---
DISCHARGED PT WITH UBER RUBY ON RAILS ENGINEER THAT WAS CALLED BY INSURANCE TO [facility] KAY MACHINE OPERATOR THE PT, IV LINE AND ARM BAND REMOVED, DISCHARGED TEACHINGS ON INCISION MANAGEMENT GIVEN TO PT AND VERBALIZED UNDERSTANDING. MEDICATION PRESCRIPTION WAS GIVEN TO PT AND GIVEN INSTRUCTIONS WELL AND VERBALIZED UNDERSTANDING. PT IS STABLE AT THIS TIME WITH BP OF 158/79, PULSE OF 80, DENIES PAIN.
--- NOTE | 2019-06-19 16:10 | NUR ---
FAXED ALL THE DISCHARGE PAPER WORK OF THE PT,THAT THE DIPLOMA MEDICAL ASSISTANT FORGOT TO BRING, TO [phone] AND CALLED [facility] AT [phone] AND SPOKE TO [facility] AND WAS INFORMED THAT PT'S DOCUMENTS WILL BE FAXED AND IRAIDA VERBALIZED UNDERSTANDING.AWAITING CONFIRMATION NOTE.
--- NOTE | 2019-06-19 16:29 | NUR ---
RECEIVED CONFIRMATION NOW FROM THE FAXED DISCHARGED PAPER WORK SENT TO [facility].
== END 2019-06-19 15:25 | DRG 418 ==
LOC: MED 03:49 → MMU 06:33
PROVIDERS: ADMIT Family Medicine; ATTEND Family Medicine
PROC: 0FT44ZZ Resection of Gallbladder, Percutaneous Endoscopic Approach (ICD-10-PCS; principal; 2019-06-17 10:15)
DX: K80.00 Calculus of gallbladder with acute cholecystitis without obstruction (principal); K82.1 Hydrops of gallbladder; R07.9 Chest pain, unspecified; E83.39 Other disorders of phosphorus metabolism; E83.42 Hypomagnesemia; D72.825 Bandemia; I10 Essential (primary) hypertension; E78.00 Pure hypercholesterolemia, unspecified; E78.5 Hyperlipidemia, unspecified; N40.0 Benign prostatic hyperplasia without lower urinary tract symptoms
CPT/HCPCS: 36415; 71045; 76700; 78445; 80048; 80053; 81003; 82374; 82550; 83036; 83605; 83690; 83735; 83880; 84100; 84439; 84443; 84484; 85025; 85610; 85730; 87040; 87081; 87086; 88304; 93005; 96360; 97116; 99285; J0360; J1100; J1170; J1644; J1885; J2405; J2543; J2704; J2710; J3010; J3475; J3490; J7030; J7060; Q0092